=== PATIENT | female | born 1990 | race Caucasian/White ===

== ENCOUNTER 2022-04-18 19:53 | Emergency (ER) | payer SELFPAY ==
[~2022-04-18] VITALS: Ht 175.3 cm; Wt 90.7 kg
[2022-04-18 20:08] VITALS: BP_SYST 122
[2022-04-18] MEDS ORDERED: KETOROLAC TROMETHAMINE 60 MG/2 ML VIAL IM ONE (22:30)
[2022-04-18] MEDS ORDERED: VANCOMYCIN HCL 1,000 MG in NS 250 ML IV ONE (22:30)
[2022-04-18 23:26] LABS: BASOPHILS # (AUTO) 0.1 K/uL (0.0-0.2); BASOPHILS % (AUTO) 0.7 % (0.0-2.0); EOSINOPHILS # (AUTO) 0.3 K/uL (0.0-0.4); EOSINOPHILS % (AUTO) 4.5 % (0.0-4.0); HEMATOCRIT 36.8 % (36-48); HEMOGLOBIN 12.4 g/dL (12.0-16.0); LYMPHOCYTES # (AUTO) 1.5 K/uL (1.0-5.5); LYMPHOCYTES % (AUTO) 21.5 % (20.5-51.5); MEAN CORPUSCULAR HEMOGLOBIN 29 pg (27-31); MEAN CORPUSCULAR HGB CONC 34 % (32-36); MEAN CORPUSCULAR VOLUME 84 fL (79.0-98.0); MONOCYTES # (AUTO) 0.7 K/uL (0.0-1.0); MONOCYTES % (AUTO) 10.5 % (1.7-9.3); NEUTROPHILS # (AUTO) 4.4 K/uL (1.8-7.7); NEUTROPHILS % (AUTO) 62.8 % (40.0-70.0); PLATELET COUNT (AUTO) 266 K/uL (130-430); RED BLOOD CELL COUNT(AUTO) 4.37 MIL/uL (4.2-6.2); RED CELL DISTRIBUTION WIDTH 13.1 % (9.0-15.0)
[2022-04-18 23:27] LABS: CALCIUM 8.4 mg/dL (8.4-11.0); CREATININE 0.88 mg/dL (0.55-1.30); POTASSIUM 4.4 mmol/L (3.5-5.1)
[2022-04-18 23:38] LABS: TOTAL BILIRUBIN 0.1 mg/dL (0.0-1.0)
[2022-04-18] MEDS ORDERED: VANCOMYCIN HCL 1000 MG/VIAL IV ONE (23:39)
[2022-04-18] MEDS ORDERED: KETOROLAC TROMETHAMINE 30 MG VIAL IVP ONE (23:45)
[2022-04-19] MEDS ORDERED: NACL 0.9% 1,000 ML IV ONE
[2022-04-19] MEDS ORDERED: CEPH250C PO (01:37)
[2022-04-19] MEDS ORDERED: SULF1TAB48 PO (01:37)
[2022-04-19 03:03] VITALS: BP_SYST 105
== END 2022-04-19 03:03 | disposition home or self-care (01) ==
LOC: SED 19:53
DX: L03.116 Cellulitis of left lower limb (principal); Z91.040 Latex allergy status
CPT/HCPCS: 36415; 73590; 80053; 83605; 84702; 85025; 93971; 96365; 96366; 96375; 99285; J1885; J3370